=== PATIENT | female | born 1995 | race African-American/Black ===

== ENCOUNTER 2018-12-08 10:48 | Emergency (ER) | payer SELFPAY ==
[2018-12-08 11:00] VITALS: BMI 19.8
[2018-12-08] MEDS ORDERED: ONDANSETRON 4 MG/2 ML VIAL IVPUSH ONE (11:07)
[2018-12-08] MEDS ORDERED: SODIUM CHLORIDE 1,000 ML IV STA (11:07)
[2018-12-08] MEDS ORDERED: ACETAMINOPHEN 1000 MG/100 ML VIAL (NON FORMULARY) IVPB ONE (11:07)
[2018-12-08] MEDS ORDERED: ONDANSETRON 4 MG/2 ML VIAL ONE (11:12)
[2018-12-08] MEDS ORDERED: ACETAMINOPHEN INJECTION 100 ML IVPB ONE (11:12)
--- NOTE | 2018-12-08 11:14 | PDOC ---
History of Present Illness - General Chief Complaint: Nausea/Vomiting Stated Complaint: VOMITING Time Seen by Provider: 12/08/18 11:06 History Source: Patient Exam Limitations: No Limitations - History of Present Illness Initial Comments: Pt is a 23 yo F, (1 living child, 1 spontaneous , now at 6 wks ), with PMH of anemia (no transfusions), epilepsy (last sz 1 year ago, not on AE), and asthma, who is presenting with nausea, vomiting, and diffuse abdominal cramping since yesterday afternoon after taking prescribed " pills" (1 dose of 200 mg mifepristone). Pt was going to [facility] [place] ER for OB care, as she just moved to [place] from [place] recently. She has been admitted multiple times this for hyperemesis. Pt states the n/v occurred all night, and she now has a mild headache. Pt denies any recent fevers /chills, vision changes, syncope, chest pain, palpitations, SOB, urinary symptoms, diarrhea/constipation, or leg swelling. Allergies: NKDA PCP: None LMP in July Social: Pt denies any cigarette, alcohol, or drug use. Pt denies any recent travel or sick contacts. Surgical: no relevant history. Family: no relevant history. 12/08/18 11:29 Past History - Travel Traveled outside of the country in the last 30 days: No Close contact w/someone who was outside of country & ill: No - Past Medical History Allergies/Adverse Reactions: Allergies Allergy/AdvReac Type Severity Reaction Status Date / Time morphine Allergy Mild Verified 12/08/18 11:00 Home Medications: Ambulatory Orders Ondansetron [Zofran Odt -] 4 mg SL TID PRN #20 od.tablet 12/08/18 Anemia: Yes Asthma: Yes COPD: No Seizures: Yes (not on meds) - Suicide/Smoking/Psychosocial Hx Smoking History: Never smoked Information on smoking cessation initiated: No Hx Alcohol Use: No Drug/Substance Use Hx: No Abd/GI Specific PMHX - Complaint Specific PMHX GERD: No Review of Systems - Review of Systems Able to Perform ROS?: Yes Is the patient limited Tamazight proficient: No Constitutional: Yes: Weight Stable. No: Chills, Diaphoresis, Fever, Loss of Appetite, Malaise, Weakness HEENTM: No: Blurred Vision, Double Vision, Nose Congestion, Throat Pain, Throat Swelling, Difficulty Swallowing Respiratory: No: Cough, Orthopnea, Shortness of Breath, Wheezing Cardiac (ROS): No: Chest Pain, Edema, Irregular Heart Rate, Lightheadedness, Palpitations, Syncope, Chest Tightness ABD/GI: Yes: See HPI, Nausea, Poor Appetite, Poor Fluid Intake, Vomiting, Abdominal cramping. No: Constipated, Diarrhea, Difficulty Swallowing, Rectal Bleeding, Indigestion : No: Burning, Dysuria, Pain, Urgency Musculoskeletal: No: Back Pain, Joint Pain Integumentary: No: Rash Neurological: Yes: Headache (post vomiting), Seizure (in the past, 1 per year, not on anti-epileptics). No: Numbness, Paresthesia, Weakness, Unsteady Gait, Dizziness Psychiatric: No: Sleep Pattern Change, Change in Appetite Endocrine: No: Increased Urine, Change in Weight Hematologic/Lymphatic: Yes: Anemia. No: Blood Clots, Easy Bleeding, Easy Bruising *Physical Exam - Vital Signs Last Vital Signs Temp Pulse Resp BP Pulse Ox 98 F 80 19 135/88 98 12/08/18 10:58 12/08/18 10:58 12/08/18 10:58 12/08/18 10:58 12/08/18 10:58 - Physical Exam Comments: Vitals stable, pt afebrile. Pt anxious appearing, dry-heaving on exam. Thin body habitus. Pt alert and oriented x3. 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 No midline spinal tenderness, step-offs, or crepitus. Head normocephalic, atraumatic. Eyes PERRLA, EOMI. Oropharynx without erythema or exudates, no LAD b/l. No nasal congestion, hearing intact. Clear heart sounds, S1/S2, no JVD, b/l pedal edema, or heart murmur. Clear lung sounds, no respiratory distress, wheezes, crackles, or accessory muscle use. Diffuse abdominal TTP, worst in epigastric area. Abdomen soft, non-distended, and with normoactive bowel sounds. No CVA TTP. Skin without jaundice or rash. 12/08/18 11:27 12/08/18 11:32 ED Treatment Course - LABORATORY CBC & Chemistry Diagram: 12/08/18 11:09 12/08/18 11:09 Medical Decision Making - Medical Decision Making Pt was seen at bedside, also will be seen by attending Dr. Paul. Pt presenting with n/v and diffuse abdominal cramping, which is likely 2/2 to taking pills (mifepristone) yesterday. PE showed diffusely tender abdomen which was worst in the epigastric area. Will treat for n/v, possible hypovolemia and will evaluate for HELLP and anemia. Ordered work-up including CBC, CMP, Mg, beta-hcg, type and screen, UA. Provided 1 L IV NS and 4 mg IV zofran for improvement of nausea and hypovolemia. Will continue to reassess pt and monitor for symptomatic improvement. 12/08/18 11:33 Pt has had no further episodes of vomiting, states much more comfortable. CBC and CMP WNL. Pending type and screen (r/o need for rhogham) 12/08/18 12:07 Pt continues to complain of n/v -- providing reglan and benadryl. 12/08/18 12:11 Pt states n/v improved. Abdomen soft and non-tender. CBC and CMP generally WNL. Providing antibiotics for UTI. Considering normal lab results and imaging, pt can be discharged to home with follow-up. Pt advised to follow-up with PCP in 1-2 days and has been referred to OB and neurology. Strict return precautions provided with pt understanding. 12/08/18 13:18 *DC/Admit/Observation/Transfer Diagnosis at time of Disposition: Medical Nausea and vomiting Qualifiers: Vomiting type: unspecified Vomiting Intractability: non-intractable Qualified Code(s): R11.2 - Nausea with vomiting, unspecified Epilepsy Qualifiers: Epilepsy type: unspecified Intractability: not intractable Status epilepticus: without status epilepticus Qualified Code(s): G40.909 - Epilepsy, unspecified, not intractable, without status epilepticus - Discharge Dispostion Disposition: HOME Condition at time of disposition: Improved Decision to Admit order: No - Prescriptions Prescriptions: Ondansetron [Zofran Odt -] 4 mg SL TID PRN #20 od.tablet PRN Reason: Nausea And/Or Vomiting - Referrals Referrals: Dom Taveras MD [Staff Physician] - Krystian Leslie MD [Staff Physician] - - Patient Instructions Printed Discharge Instructions: DI for Therapeutic : Medical, DI for Hyperemesis Gravidarum Additional Instructions: You were seen in the ER today for nausea and vomiting. The results of your labs and imaging today showed a UTI. Please follow-up with your primary care doctor, OB (Dr. Taveras) and Neurology (Dr. Leslie) within 1-2 days to discuss your visit and make sure your symptoms have improved. Please return to the ER if you have any worsening pain, development of fevers or chills, loss of consciousness , inability to tolerate food or fluids, or any other concerns. You should expect to pass tissue/clots and have some nausea and vomiting over the next few days. I have sent nausea medication and an antibiotic to your pharmacy. Please take these as prescribed. - Post Discharge Activity
[2018-12-08 11:29] LABS: BASO % 0.7 % (0-2.0); EOS % 0.2 % (0-4.5); HEMATOCRIT 37.4 % (32.4-45.2); HEMOGLOBIN 12.9 GM/dL (10.7-15.3); LYMPH % 22.4 % (8-40); MCH 32.6 pg (25.7-33.7); MCHC 34.6 g/dl (32.0-36.0); MEAN CELL VOLUME 94.3 fl (80-96); MEAN PLT VOLUME 8.9 fl (7.5-11.1); MONO % 9.5 % (3.8-10.2); NEUT % 67.2 % (42.8-82.8); PLATELET COUNT 199 K/MM3 (134-434); RBC 3.96 M/mm3 (3.60-5.2); RDW 12.7 % (11.6-15.6); WHITE BLOOD COUNT 7.5 K/mm3 (4.0-10.0)
[2018-12-08 11:57] LABS: ALBUMIN 3.7 g/dl (3.4-5.0); BILIRUBIN,TOTAL 0.4 mg/dL (0.2-1); BLOOD UREA NITROGEN 5.6 mg/dL (7-18); CALCIUM 8.9 mg/dL (8.5-10.1); CREATININE 0.7 mg/dL (0.55-1.3); POTASSIUM 3.4 mmol/L (3.5-5.1)
--- NOTE | 2018-12-08 12:07 | PDOC ---
Documentation entered by Bakari Scott SCRIBE, acting as scribe for Sincere Paul MD. Sincere Paul MD: This documentation has been prepared by the Tyler wei Elijah, SCRIBE, under my direction and personally reviewed by me in its entirety. I confirm that the documentation accurately reflects all work, treatment, procedures, and medical decision making performed by me. Attending Attestation - Resident Resident Name: Ann Marie Hercules - ED Attending Attestation I have performed the following: I have examined & evaluated the patient, The case was reviewed & discussed with the resident, I agree w/resident's findings & plan - HPI HPI: 12/08/18 12:32 Patient is a 23 year old female (6 wks ), with a significant past medical history of anemia, epilepsy, and asthma who presents to the ED with nausea, vomiting and abdominal pain beginning yesterday. Patient recently was seen at [facility] where she recieved an pill (Mifeprox). An hour after taking the pill, the vomiting began as well as abdominal pain which she described as cramping. Allergies: Morphine - Physicial Exam PE: 12/08/18 12:32 Vitals: Triage Vital signs reviewed General Appearance: no acute distress, well nourished well developed, Neck: Supple;No Nuchal rigidity Chest Wall: Nontender Cardiac: Regular rate and rhythm, no murmurs, no rubs, no gallops, Lungs: Clear to auscultation bilateral, good air movement bilaterally, Abdomen: Soft, nondistended, normal bowel sounds, nontender to palpation Rectal: Exam deferred Extremities: Full range of motion to all extremities, no cyanosis, clubbing, or edema Skin: Warm and dry, no rashes or lesions, no petechiae Psych: normal mood, normal affect - Medical Decision Making 12/08/18 16:48 Nausea vomiting status post treatment with Mifeprox 6 weeks patient feels much better after antiemetics will 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
[2018-12-08] MEDS ORDERED: METOCLOPRAMIDE HCL INJECTION 10 MG/2 ML VIAL IVPUSH ONE (12:10)
[2018-12-08] MEDS ORDERED: METOCLOPRAMIDE HCL INJECTION 10 MG/2 ML VIAL ONE (12:17)
[2018-12-08 12:35] LABS: EPI CELLS 18.8 /HPF (0-5/HPF); HYALINE CASTS 55 /lpf (0-8); PH,URINE 6.5 (5.0-8.0); URINE APPEARANCE CLOUDY; URINE BACTERIA 261.7 /hpf (NEGATIVE); URINE BILIRUBIN NEGATIVE (NEGATIVE); URINE COLOR YELLOW; URINE GLUCOSE (UA) NEGATIVE (NEGATIVE); URINE KETONE TRACE (NEGATIVE); URINE LEUK ESTERASE 2+ (NEGATIVE); URINE NITRITE NEGATIVE (NEGATIVE); URINE PROTEIN 1+ (NEGATIVE); URINE RBC 1 /hpf (0-4); URINE WBC 26 /hpf (0-5)
[2018-12-08 13:20] LABS: URINE CRYSTALS CA OXALATE /hpf
[2018-12-08 13:52] VITALS: BP 108/80; PULSE 87; TEMP 98.1
== END 2018-12-08 13:51 | disposition home or self-care (01) ==
LOC: JER 10:48
PROC: 3E033NZ Introduction of Analgesics, Hypnotics, Sedatives into Peripheral Vein, Percutaneous Approach (ICD-10-PCS; principal; 2018-12-08)
PROC: 3E033GC Introduction of Other Therapeutic Substance into Peripheral Vein, Percutaneous Approach (ICD-10-PCS; 2018-12-08)
PROC: 3E033GC Introduction of Other Therapeutic Substance into Peripheral Vein, Percutaneous Approach (ICD-10-PCS; 2018-12-08)
PROC: 3E033GC Introduction of Other Therapeutic Substance into Peripheral Vein, Percutaneous Approach (ICD-10-PCS; 2018-12-08)
DX: O26.891 Other specified pregnancy related conditions, first trimester (principal); O9A.211 Injury, poisoning and certain other consequences of external causes complicating pregnancy, first trimester; R11.2 Nausea with vomiting, unspecified; T38.6X5A Adverse effect of antigonadotrophins, antiestrogens, antiandrogens, not elsewhere classified, initial encounter; Y92.038 Other place in apartment as the place of occurrence of the external cause; Z3A.01 Less than 8 weeks gestation of pregnancy
CPT/HCPCS: 36415; 80053; 81003; 83735; 84702; 85025; 86850; 86900; 86901; 87086; 99284-25; J0131; J7030